=== PATIENT | female | born 1980 | race Caucasian/White ===

== ENCOUNTER 2018-10-04 16:40 | Emergency (ER) | payer BC ==
[~2018-10-04] VITALS: Ht 162.6 cm; Wt 58.5 kg
--- NOTE | 2018-10-04 16:52 | NUR ---
PT BIBSELF FOR LACERATION ON FACE S/P BIT BY A DOG; PT AAOX4, PT AMBULATORY, NOTED WITH MULTIPLE LAC ON FACE, SLIGHT DISCOMFORT NOTED, PENDING MD DUENAS
[2018-10-04] MEDS ORDERED: LIDOCAINE HCL/MPF 1% 30 ML VIAL IJ ONE (17:28)
[2018-10-04] MEDS ORDERED: ACETAMINOPHEN ES 500 MG TABLET PO ONE (17:30)
[2018-10-04] MEDS ORDERED: LIDOCAINE 1% INJ 50 ML MDV IJ ONE (17:30)
[2018-10-04] MEDS ORDERED: TDAP [DIPH/PERTUSSIS/TET] 0.5 ML VIAL IM ONE ×2 (17:30→17:53)
[2018-10-04] MEDS ORDERED: ACETAMINOPHEN ES 500 MG TABLET ONE (17:53)
--- NOTE | 2018-10-04 18:35 | NUR ---
Patient discharged to home in stable condition. Written and verbal after care instructions given. Patient verbalizes understanding of instruction.
== END 2018-10-04 18:36 | disposition home or self-care (01) ==
LOC: ER 16:50
DX: S01.511A Laceration without foreign body of lip, initial encounter (principal); S01.411A Laceration without foreign body of right cheek and temporomandibular area, initial encounter; S01.81XA Laceration without foreign body of other part of head, initial encounter; S01.21XA Laceration without foreign body of nose, initial encounter; Z88.0 Allergy status to penicillin; Z23 Encounter for immunization; W54.0XXA Bitten by dog, initial encounter; Y93.89 Activity, other specified; Y92.89 Other specified places as the place of occurrence of the external cause; Y99.8 Other external cause status
CPT/HCPCS: 12011; 90471; 90715; 99284; J3490